=== PATIENT | female | born 1970 | race Two or more races ===

== ENCOUNTER → 2017-02-11 | Outpatient (CLI) | payer OTHER ==
[2016-01-23 21:05] VITALS: BP 107/69
--- NOTE | 2017-02-11 14:37 | RAD ---
DATE: 02/11/2017 EXAM: MAMMO HILDA SCREENING BILATERAL HISTORY: Routine screening. COMPARISON: 02/02/2016 and 01/25/2015. This study was interpreted with the benefit of Computerized Aided Detection (CAD). FINDINGS: The parenchymal pattern is stable. Right breast mass is stable. No new mass is identified. No malignant-appearing microcalcifications are seen. The axillae are unremarkable. Breast Density: HETERO The breast parenchyma is heterogeneously dense, which could reduce sensitivity of mammography. Breast parenchyma level C. IMPRESSION: No mammographic features suspicious for malignancy are identified. BI-RADS CATEGORY: 2 BENIGN FINDING(S) RECOMMENDED FOLLOW-UP: 12M 12 MONTH FOLLOW-UP PQRS compliance statement: Patient information was entered into a reminder system with a target due date 02/11/2018 for the next mammogram. Mammography is a sensitive method for finding small breast cancers, but it does not detect them all and is not a substitute for careful clinical examination. A negative mammogram does not negate a clinically suspicious finding and should not result in delay in biopsying a clinically suspicious abnormality. "Our facility is accredited by the [employer] Mammography [employer]."
== END | disposition home or self-care (01) ==
LOC: MAMMO 13:37
PROVIDERS: ATTEND Obstetrics & Gynecology
DX: Z12.31 Encounter for screening mammogram for malignant neoplasm of breast (principal)
CPT/HCPCS: 77063; G0202; 77067

== ENCOUNTER → 2018-02-13 | Outpatient (CLI) | payer OTHER ==
[2017-10-29 15:24] VITALS: BP 85/50
[~2018-02-13] MED LIST: RANI150T21 PO
--- NOTE | 2018-02-16 08:36 | RAD ---
DATE: 02/13/2018 10:00 AM EXAM: MAMMO HILDA SCREENING BILATERAL HISTORY: routine screening evaluation. COMPARISON: Prior mammographic imaging dating back to 01/29/2012 Bilateral CC and MLO views of the breasts were performed. Bilateral breast tomosynthesis was performed in CC and MLO projections. This study was interpreted with the benefit of Computerized Aided Detection (CAD ). Breast Density: The breast parenchyma is heterogeneously dense, which could reduce sensitivity of mammography. Breast parenchyma level C. FINDINGS: Benign calcifications are present. Nodular mass in the superior right breast is stable to at least 10/01/2013. No suspicious masses, microcalcifications or architectural distortion is present to suggest malignancy in either breast. The visualized axillae are unremarkable. IMPRESSION: No mammographic evidence of malignancy. BI-RADS CATEGORY: 2 BENIGN FINDING(S) RECOMMENDED FOLLOW-UP: 12M 12 MONTH FOLLOW-UP Annual screening mammography is recommended, unless clinically indicated sooner based on symptoms or change in physical exam. PQRS compliance statement: Patient information was entered into a reminder system with a target due date 02/13/2019 for the next mammogram. Mammography is a sensitive method for finding small breast cancers, but it does not detect them all and is not a substitute for careful clinical examination. A negative mammogram does not negate a clinically suspicious finding and should not result in delay in biopsying a clinically suspicious abnormality. "Our facility is accredited by the [employer] Mammography [employer]." MTDD
== END | disposition home or self-care (01) ==
LOC: MAMMO 07:53
PROVIDERS: ATTEND Family Medicine
DX: Z12.31 Encounter for screening mammogram for malignant neoplasm of breast (principal)
CPT/HCPCS: 77063; 77067

== ENCOUNTER 2018-11-18 18:02 | Emergency (ER) | payer OTHER ==
[~2018-11-18] VITALS: Ht 149.9 cm; Wt 54.4 kg
[~2018-11-18 18:02] MED LIST changes: +RANI-376 PO; -RANI150T21 PO
[2018-11-18] MEDS ORDERED: CYCL-331 PO (19:02)
--- NOTE | 2018-11-18 19:02 | PHYS DOC ---
Past History Past Medical History: No Pertinent History Past Surgical History: Other Additional Past Surgical Histo: D&C Smoking: Non-smoker Alcohol Use: None Drug Use: None Adult General Chief Complaint Chief Complaint: BACK PAIN OR INJURY HPI HPI Patient is a 48 year old female who presents with complaint of back pain. The patient states that she started having pain in her upper back earlier today while at work. 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 Notes that the pain worsens with movement along her right side and with movement of her right upper extremity. Notes that she also gets back spasms when she takes a deep breath. Denies any recent fall or trauma. D enies any unilateral weakness, difficulty with ambulation, or any loss of bowel or bladder control. Took naproxen at approximately 1230 with minimal relief in pain. Review of Systems Review of Systems Constitutional: Denies fever or chills [] Eyes: Denies change in visual acuity, redness, or eye pain [] HENT: Denies nasal congestion or sore throat [] Respiratory: Denies cough or shortness of breath [] Cardiovascular: Denies chest pain or edema [] GI: Denies abdominal pain, nausea, vomiting, bloody stools or diarrhea [] : Denies dysuria or hematuria [] Musculoskeletal: Back pain[] Integument: Denies rash or skin lesions [] Neurologic: Denies headache, focal weakness or sensory changes [] All other systems were reviewed and found to be within normal limits, except as documented in this note. Current Medications Current Medications Current Medications Medications (Trade) Dose Ordered Sig/[facility] Start Time Stop Time Status Last Admin Dose Admin Acetaminophen (Tylenol) 650 mg 1X ONCE 11/18/18 19:00 11/18/18 19:01 UNV Cyclobenzaprine HCl (Flexeril) 10 mg 1X ONCE 11/18/18 19:00 11/18/18 19:01 UNV Allergies Allergies Allergies Coded Allergies Type Severity Reaction Last Updated Verified No Known Drug Allergies 08/31/13 No Physical Exam Physical Exam Constitutional: Well developed, well nourished, no acute distress, non-toxic appearance. [] HENT: Normocephalic, atraumatic, bilateral external ears normal, oropharynx moist, no oral exudates, nose normal. [] Eyes: PERRLA, EOMI, conjunctiva normal, no discharge. [] Neck: Normal range of motion, no tenderness, supple, no stridor. [] Cardiovascular:Heart rate regular rhythm, no murmur [] Lungs & Thorax: Bilateral breath sounds clear to auscultation [] Abdomen: Bowel sounds normal, soft, no tenderness, no masses, no pulsatile masses. [] Skin: Warm, dry, no erythema, no rash. [] Back: Right-sided paraspinous muscle tenderness to palpation along mid thoracic spine, no midline tenderness, no flank ecchymosis, no CVA tenderness. [] Extremities: No tenderness, no cyanosis, no clubbing, ROM intact, no edema. [] Neurologic: Alert and oriented X 3, normal motor function, normal sensory function, no focal deficits noted. [] Current Patient Data Vital Signs Vital Signs Date Time Temp Pulse Resp B/P (MAP) Pulse Ox O2 Delivery O2 Flow Rate FiO2 11/18/18 18:05 98.4 84 20 100 Room Air Lab Results Not performed EKG EKG Not performed[] Radiology/Procedures Radiology/Procedures Not performed[] Course & Med Decision Making Course & Med Decision Making Pertinent Labs and Imaging studies reviewed. (See chart for details) Patient's symptoms appear consistent with thoracic back muscle strain. Given Tylenol and cyclobenzaprine in the emergency department. Advised continued use of Tylenol in addition to prescribed Flexeril given at today's visit. Recommended follow-up with primary doctor in 3-5 days for reevaluation and return to emergency department for any worsening symptoms per patient was understanding and in agreement with treatment plan.[] Dragon Disclaimer Dragon Disclaimer This electronic medical record was generated, in whole or in part, using a voice recognition dictation system. Departure Departure: Impression: Primary Impression: Strain of thoracic back region Disposition: HOME, SELF-CARE Condition: STABLE Referrals: CHILO MENDOZA MD (PCP) Patient Instructions: Back Pain, Adult Additional Instructions: Follow-up with your primary doctor in the next 3-5 days for reevaluation. Return to the emergency department for any worsening symptoms. Scripts Cyclobenzaprine Hcl (CYCLOBENZAPRINE HCL) 10 Mg Tablet 1 TAB PO TID PRN for MUSCLE SPASMS, #30 TAB Prov: RODRIGUE DA SILVA MD 11/18/18 RODRIGUE DA SILVA MD Nov 18, 2018 19:02
[2018-11-18] MEDS ORDERED: CYCLOBENZAPRINE 10 MG TABLET. PO ONE (19:15)
[2018-11-18] MEDS ORDERED: ACETAMINOPHEN 325 MG TABLET PO ONE (19:15)
[2018-11-18 19:20] VITALS: BP 116/74
== END 2018-11-18 19:24 | disposition home or self-care (01) ==
LOC: ER 18:02
DX: S29.012A Strain of muscle and tendon of back wall of thorax, initial encounter (principal); X50.9XXA Other and unspecified overexertion or strenuous movements or postures, initial encounter; Y93.89 Activity, other specified; Y92.89 Other specified places as the place of occurrence of the external cause; Y99.0 Civilian activity done for income or pay
CPT/HCPCS: 99283

== ENCOUNTER → 2019-02-23 | Outpatient (CLI) | payer OTHER ==
[~2019-02-23] MED LIST changes: +CYCL-331 PO
--- NOTE | 2019-02-23 16:55 | RAD ---
DATE: 02/23/2019 EXAM: MAMMO HILDA SCREENING BILATERAL HISTORY: Routine screening COMPARISON: 02/13/2018, 02/11/2017, 02/02/2016, 01/25/2015 mammographic exams This study was interpreted with the benefit of Computerized Aided Detection (CAD). Breast Density: HETERO The breast parenchyma is heterogenously dense, which could reduce sensitivity of mammography. Breast parenchyma level C. FINDINGS: No suspicious calcification, new mass, or distortion. Right upper breast mass has remained stable compared to multiple prior exams. IMPRESSION: Stable BI-RADS CATEGORY: 1 NEGATIVE RECOMMENDED FOLLOW-UP: 12M 12 MONTH FOLLOW-UP PQRS compliance statement: Patient information was entered into a reminder system with a target due date for the next mammogram. Mammography is a sensitive method for finding small breast cancers, but it does not detect them all and is not a substitute for careful clinical examination. A negative mammogram does not negate a clinically suspicious finding and should not result in delay in biopsying a clinically suspicious abnormality. "Our facility is accredited by the [employer] Mammography Program."
== END | disposition home or self-care (01) ==
LOC: MAMMO 09:41
PROVIDERS: ATTEND Obstetrics & Gynecology
DX: Z12.31 Encounter for screening mammogram for malignant neoplasm of breast (principal); N64.89 Other specified disorders of breast
CPT/HCPCS: 77063; 77067

== ENCOUNTER → 2019-04-28 | Outpatient (CLI) | payer OTHER ==
[2019-04-28 09:40] LABS: BASO % 0 % (0-3); EOS # 0.1 x10^3/uL (0.0-0.7); EOS % 1 % (0-3); HEMATOCRIT 41.8 % (36.0-47.0); HEMOGLOBIN 13.8 g/dL (12.0-15.5); LYMPH % 10 % (24-48); MEAN CORPUSCULAR HEMOGLOBIN 30 pg (25-35); MEAN CORPUSCULAR HGB CONC 33 g/dL (31-37); MEAN CORPUSCULAR VOLUME 90 fL (79-100); MONO % 9 % (0-9); NEUT # 8.2 x10^3uL (1.8-7.7); NEUT % 80 % (31-73); PLATELET COUNT 255 x10^3/uL (140-400); RED BLOOD COUNT 4.63 x10^6/uL (3.50-5.40); RED CELL DISTRIBUTION WIDTH 13.2 % (11.5-14.5); WHITE BLOOD COUNT 10.3 x10^3/uL (4.0-11.0)
[2019-04-28 09:46] LABS: CALCIUM 8.1 mg/dL (8.5-10.1); CREATININE 0.6 mg/dL (0.6-1.0); GFR 105.4; POTASSIUM 3.6 mmol/L (3.5-5.1)
[2019-04-28 09:52] LABS: ALBUMIN 3.3 g/dL (3.4-5.0); ALBUMIN/GLOBULIN RATIO 0.9 (1.0-1.7); TOTAL BILIRUBIN 0.1 mg/dL (0.2-1.0); TOTAL PROTEIN 6.9 g/dL (6.4-8.2)
--- NOTE | 2019-04-28 11:49 | RAD ---
AP and Lateral Views of the Chest 04/28/2019 12:00 AM Indication: Fever, cough Comparison: None Findings: There is no focal consolidation or infiltrate identified. The cardiomediastinal silhouette is within normal limits. There is no evidence of pneumothorax or pleural effusion. No acute osseous abnormalities are identified. Impression: No evidence of acute cardiopulmonary process. Electronically signed by: Beka Brewster MD (04/28/2019 11:46 AM) [id number]
== END | disposition home or self-care (01) ==
LOC: LAB 09:11
PROVIDERS: ATTEND Family Medicine
DX: J06.9 Acute upper respiratory infection, unspecified (principal); R50.81 Fever presenting with conditions classified elsewhere; J09.X9 Influenza due to identified novel influenza A virus with other manifestations
CPT/HCPCS: 36415; 71046; 80053; 85025

== ENCOUNTER → 2019-08-24 | Outpatient (CLI) | payer OTHER ==
--- NOTE | 2019-08-24 09:03 | RAD ---
Examination: SHOULDER 2+V LEFT History: Reason: LEFT SHOULDER PAIN / Spl. Instructions: / History: Comparison/Correlation: None Findings: Total of 5 images of the left shoulder were obtained. Acromioclavicular joint is unremarkable. Spurring involves the left humeral head inferiorly. No fracture or bone destruction. Glenohumeral joint is grossly unremarkable although not well profiled for purposes of this exam. Soft tissues are grossly unremarkable. Impression: Mild spurring of the left humeral head. Electronically signed by: Min Saha MD (08/24/2019 9:00 AM) [id number]
== END | disposition home or self-care (01) ==
LOC: RAD 08:39
PROVIDERS: ATTEND Physician Assistant
DX: M75.82 Other shoulder lesions, left shoulder (principal); M19.012 Primary osteoarthritis, left shoulder
CPT/HCPCS: 73030

== ENCOUNTER → 2019-09-09 | Outpatient (CLI) | payer OTHER | LOC: LAB 14:57 | PROVIDERS: ATTEND Internal Medicine Cardiovascular Disease | DX: Z20.828 Contact with and (suspected) exposure to other viral communicable diseases (principal) | CPT/HCPCS: 36415; U0003 ==

== ENCOUNTER → 2019-10-03 | Outpatient (CLI) | payer OTHER | END | disposition home or self-care (01) | LOC: LAB 14:16 | PROVIDERS: ATTEND Internal Medicine Cardiovascular Disease | DX: R51 Headache (principal); R19.7 Diarrhea, unspecified; R11.0 Nausea; Z20.828 Contact with and (suspected) exposure to other viral communicable diseases | CPT/HCPCS: U0003-CS ==

== ENCOUNTER → 2019-12-03 | Outpatient (CLI) | payer OTHER | LOC: LAB 13:46 | PROVIDERS: ATTEND Internal Medicine Cardiovascular Disease | DX: R68.83 Chills (without fever) (principal); R68.89 Other general symptoms and signs; R51.9 Headache, unspecified; M79.10 Myalgia, unspecified site; Z20.828 Contact with and (suspected) exposure to other viral communicable diseases | CPT/HCPCS: U0003-CS ==

== ENCOUNTER → 2020-01-06 | Outpatient (CLI) | payer OTHER | LOC: LAB 13:09 | PROVIDERS: ATTEND Internal Medicine Cardiovascular Disease | DX: U07.1 COVID-19 (principal) | CPT/HCPCS: U0003 ==

== ENCOUNTER 2020-01-13 12:31 | Emergency (ER) | payer OTHER ==
[~2020-01-13] VITALS: Ht 149.9 cm; Wt 61.0 kg
--- NOTE | 2020-01-13 12:39 | PHYS DOC ---
Past History Past Medical History: No Pertinent History Past Surgical History: Other Additional Past Surgical Histo: D&C Smoking: Non-smoker Alcohol Use: None Drug Use: None General Adult EDM: Chief Complaint: SHORTNESS OF BREATH HPI: HPI: 49 yo F with no signficant pmh, recently tested positive for covid ([facility]), presents to the ed with c/o shortness of breath, fever, body aches and headache. Was treated this past week with Tamiflu and azithromycin. Worst complaint is the fatigue and headache (gradual onset). No underlying lung disease. Review of Systems: Review of Systems: Constitutional: Denies diaphoresis Eyes: Denies change in visual acuity HENT: Denies nasal congestion or sore throat Respiratory: Denies cough or shortness of breath Cardiovascular: Denies chest pain or edema GI: Denies abdominal pain, nausea, vomiting, bloody stools or diarrhea : Denies dysuria Musculoskeletal: Denies back pain or joint pain Integument: Denies rash Neurologic: Denies neck stiffness, focal weakness or sensory changes Endocrine: Denies polyuria or polydipsia Lymphatic: Denies swollen glands Psychiatric: Denies depression or anxiety Allergies: Allergies: Allergies Coded Allergies Type Severity Reaction Last Updated Verified No Known Drug Allergies 08/31/13 No Physical Exam: PE: Constitutional: Well developed, weak/flu- appearing HENT: Normocephalic, atraumatic, Eyes: EOMI, conjunctiva normal, no discharge. Neck: Normal range of motion, supple, Cardiovascular: S1/2 present, regular rhythm Lungs & Thorax: Speaking in full sentences, bilateral equal chest rise, no tachypnea or increased work of breathing, 95-97% RA Abdomen: soft, no tenderness, Skin: Warm, dry, no erythema, no rash. [] Back: No tenderness, no CVA tenderness. [] Extremities: No tenderness, no cyanosis, no edema Neurologic: Alert and oriented X 3, normal motor function, normal sensory function, no focal deficits noted. [] Psychologic: Affect normal, judgement normal, mood normal. [] EKG: EKG: [] Radiology/Procedures: Radiology/Procedures: IMAGING REPORT Signed PATIENT: JANE LOPEZ SACCOUNT: [id number] : 1970 LOCATION: ER AGE: 49 SEX: F EXAM STATUS: REG ER ORD. PHYSICIAN: JEROD VENCES DO REASON: soa PROCEDURE: PORTABLE CHEST 1V Examination: PORTABLE CHEST 1V History: Reason: soa / Comparison/Correlation: 04/27/2021 the chest x-ray Findings: Frontal view the chest was obtained. Limited pulmonary inflation. Heart size and pulmonary vasculature are normal. No pneumothorax. Mild retrocardiac linear atelectasis is suggested. No definite consolidations. Bony structures are unremarkable. Impression: No suspicious process. Electronically signed by: Min Amaro MD (01/13/2020 1:31 PM) [facility] DICTATED AND SIGNED BY: MIN AMARO MD DATE: 01/13/201330 CC: VALERIA RODRIGUEZ MD; JEROD VENCES DO ~MTH0 0 Heart Score: Risk Factors: Risk Factors: DM, Current or recent (<one month) smoker, HTN, HLP, family history of CAD, obesity. Risk Scores: Score 0 - 3: 2.5% MACE over next 6 weeks - Discharge Home Score 4 - 6: 20.3% MACE over next 6 weeks - Admit for Clinical Observation Score 7 - 10: 72.7% MACE over next 6 weeks - Early Invasive Strategies Course & Med Decision Making: Course & Med Decision Making Pertinent Labs and Imaging studies reviewed. (See chart for details) COVID-19 CRITERIA: The patient was evaluated during the global COVID-19 pandemic, and that diagnosis was suspected/considered upon their initial presentation. Their evaluation, treatment and testing was consistent with c urrent guidelines for patients who present with complaints or symptoms that may be related to COVID-19. Concern for Covid complications, not requiring any supplemental oxygen. Chest x-ray with no pneumonia. Troponin and D-dimer within normal limits. Will DC home with conservative management. Strict ED return precautions were given for return to ED immediately if your oxygen level drops below 90% (purchase a pulse oximetry at a medical supply store), difficulties breathing with increased work of breathing, chest pain or stroke-like symptoms.. Encouraged urgent outpatient follow-up with PMD. Life-threatening processes were considered but are low suspicion at this time, given history and physical exam. Pt was educated on all prescription medications and adverse effects. All patient's questions were answered and pt was stable at time of discharge. Life/limb-threatening differential includes but is not limited to, ACS, dysrhythmia, pneumothorax or hemothorax, pulmonary embolus, pneumonia, bronchoconstriction, pulmonary edema, angioedema, epiglottitis, tracheitis, Akhil's angina, RPA/MANUFACTURING EXECUTIVE, anaphylaxis, angioedema, cardiac tamponade or murmurs, pericarditis, myocarditis, poisoning or toxicity, sepsis or autoimmune/neurologic disease, meningitis, encephalitis, intracranial hemorrhage, obstructive hydrocephaly, CVA, carbon oxide poisoning, cerebral or cavernous venous thrombosis, hypertensive emergency, preeclampsia, giant cell arteritis, glaucoma, carotid or vertebral artery dissection, superior vena cava syndrome, infection, space-occupying lesions I spoken with the patient and her caregivers. I explained the patient's condition, diagnoses and treatment plan based on the information available to me at this time. I have answered the patient and her caregiver's questions and addressed any concerns. The patient and her caregivers have a good understanding of patient's diagnosis, condition and treatment plan as can be expected at this point. Vital signs have been stable. Patient's condition is stable and appropriate for discharge from the emergency department. Patient will pursue further outpatient evaluation with primary care physician or other designated or consulting physician as outlined in the discharge instructions. The patient and/or caregivers are agreeable to this plan of care and follow-up instructions have been explained in detail. The patient and/or caregivers have received these instructions in written form and have expressed an understanding of the discharge instructions. The patient and/or caregivers are aware that any significant change of condition or worsening of symptoms should prompt immediate return to this or the closest emergency department or call to 911. Gurpreet Disclaimer: Gurpreet Disclaimer: This electronic medical record was generated, in whole or in part, using a voice recognition dictation system. Departure Departure: Impression: Primary Impression: COVID-19 Additional Impressions: Headache Myalgia Disposition: 01 DC HOME SELF CARE/HOMELESS Condition: STABLE Referrals: VALERIA RODRIGUEZ MD (PCP) in 1-2 weeks Patient Instructions: General Headache Without Cause Additional Instructions: You have been tested for or diagnosed with COVID-19. It is an infection caused by a new type of coronavirus. COVID-19 will cause cold-like or mild flu symptoms in most. It can cause more severe symptoms like problems breathing in some. There is no treatment for COVID-19. The body will clear the infection over time. Self-care will help to ease discomfort. Steps to Take: Self-Care Rest as needed. Healthy habits may help you feel better. Steps include: Choose healthy foods including fruits and vegetables. Drink water throughout the day. Get plenty of sleep each night. If you smoke, try to quit. It may ease breathing. Avoid alcohol. Keep Others Healthy The virus can spread to others. Droplets are released every time you sneeze or cough. The droplets can get into the mouth, nose, or eyes of people near you and lead to infection. To lower the chances of spreading COVID-19 to others: Stay at home until your doctor has said it is safe to leave. If you tested positive this will mean staying isolated until both of the following are true: At least 7 days have passed since the start of illness. You are free of fever for at least 72 hours without the use of medicine. During this time: - Avoid public areas, events, or transportation. Do not return to work or school until your doctor has said it is safe to do so. - Call ahead if you need to go to a medical center. Let them know you may have COVID-19. It will help them guide you where to go. They may also ask you to wear a facemask when you come to the office. - If you call for emergency medical services, let them know you may have COVID- 19. While at home: - Try to avoid close contact with others. Stay about 6 feet away. - If possible, spend most of your time in a separate room from others. - Use a face mask if you will be in close contact with others such as sharing a room or vehicle. - Have someone wipe down common surfaces in the home. Use household print production associate every day on areas like doorknobs, counters, or sinks. - Cough or sneeze into a tissue. Throw the tissue away right after use. If a tissue is not available, cough or sneeze into your elbow. - Wash your hands often. Wash them after sneezing or coughing. Use soap and water and wash for at least 20 seconds. Alcohol based hand commercial cleaner can be used if soap and water is not available. - Do not prepare food for others. Avoid sharing personal items like forks, spoons, or toothbrushes. - Avoid close contact with pets while you are sick. There is no evidence of the virus passing to pets. This is a safety step until more is known about this virus. Isolation can be frustrating. Social interaction can help. Keep in touch with friends and family through phone and tech options. You can still interact with others in your home, just keep a safe distance of about 6 feet. Follow-up: Your doctors office will check in with you to see if there are any changes in your health. You may be asked to keep track of symptoms to share with them. They will also let you know when you are clear to be in public again. Problems to Look Out For: Contact your doctor if your recovery is not going as you expect. Get emergency care if you have problems such as: - Trouble breathing - Nonstop chest pain or pressure - Changes in awareness, confusion, or problems waking - Lips or face have bluish color - Worsening of symptoms If you think you have an emergency, call for emergency medical services right away. As taken from [facility],JEROD Peck DO Jan 13, 2020 12:39
[2020-01-13] MEDS ORDERED: IV NORMAL SALINE 1,000ML 1,000 ML IV ONE ×3 (12:45→13:45)
[2020-01-13 12:50] VITALS: BP 105/68
--- NOTE | 2020-01-13 13:21 | EKG ---
[address] [address] Test Date: 2020-01-13 Test Time: 13:06:07 Pat Name: JANE LOPEZ Department: Room: Gender: F Singing Telegram Performer: SHANITA : 1970 Requested By: JEROD VENCES Order Number: [id number] Reading MD: Measurements Intervals [place] Rate: 94 P: 34 LA: 116 QRS: -5 QRSD: 78 T: 11 QT: 362 QTc: 458 Interpretive Statements SINUS RHYTHM LEFTWARD AXIS OTHERWISE NORMAL ECG RI6.02 No previous ECG available for comparison
--- NOTE | 2020-01-13 13:34 | RAD ---
Examination: PORTABLE CHEST 1V History: Reason: soa / Comparison/Correlation: 04/27/2021 the chest x-ray Findings: Frontal view the chest was obtained. Limited pulmonary inflation. Heart size and pulmonary vasculature are normal. No pneumothorax. Mild retrocardiac linear atelectasis is suggested. No definite consolidations. Bony structures are unremarkable. Impression: No suspicious process. Electronically signed by: Min Saha MD (01/13/2020 1:31 PM) [facility]
[2020-01-13 13:43] LABS: BASO % 0 % (0-3); EOS % 0 % (0-3); HEMATOCRIT 44.4 % (36.0-47.0); HEMOGLOBIN 14.6 g/dL (12.0-15.5); LYMPH # 0.6 x10^3/uL (1.0-4.8); LYMPH % 13 % (24-48); MEAN CORPUSCULAR HEMOGLOBIN 30 pg (25-35); MEAN CORPUSCULAR HGB CONC 33 g/dL (31-37); MEAN CORPUSCULAR VOLUME 91 fL (79-100); MONO # 0.4 x10^3/uL (0.0-1.1); MONO % 9 % (0-9); NEUT # 3.3 x10^3uL (1.8-7.7); NEUT % 78 % (31-73); PLATELET COUNT 217 x10^3/uL (140-400); RED BLOOD COUNT 4.88 x10^6/uL (3.50-5.40); RED CELL DISTRIBUTION WIDTH 12.7 % (11.5-14.5); WHITE BLOOD COUNT 4.3 x10^3/uL (4.0-11.0)
[2020-01-13] MEDS ORDERED: diphenhydrAMINE 50 MG/ML VIAL IVP ONE (13:45)
[2020-01-13] MEDS ORDERED: PROCHLORPERAZINE 10 MG/2 ML VIAL. IV ONE (13:45)
[2020-01-13] MEDS ORDERED: DEXAMETHASONE SOD PHOS 10 MG/ML VIAL. IV ONE (13:45)
[2020-01-13] MEDS ORDERED: KETOROLAC 15 MG/ML VIAL. IVP ONE (13:45)
[2020-01-13] MEDS ORDERED: IPRATRPIUM/ALBUTEROL 0.5/2.5MG 3 ML NEBU. NEB ONE (13:45)
[2020-01-13 14:08] LABS: CREATININE 0.8 mg/dL (0.6-1.0); GFR 75.6; POTASSIUM 3.9 mmol/L (3.5-5.1)
[2020-01-13 14:18] LABS: INFLUENZA A PATIENT NEGATIVE (NEGATIVE); INFLUENZA B PATIENT NEGATIVE (NEGATIVE)
[2020-01-13 14:21] LABS: ALBUMIN 3.5 g/dL (3.4-5.0); ALBUMIN/GLOBULIN RATIO 0.9 (1.0-1.7); TOTAL BILIRUBIN 0.1 mg/dL (0.2-1.0); TOTAL PROTEIN 7.2 g/dL (6.4-8.2)
== END 2020-01-13 14:57 | disposition home or self-care (01) ==
LOC: ER 12:31
DX: U07.1 COVID-19 (principal); R51.9 Headache, unspecified; M79.10 Myalgia, unspecified site
CPT/HCPCS: 36415; 71045; 80053; 83605; 83880; 84484; 85025; 85379; 87040; 87804; 93005; 96365; 99285; J1956; J7030

== ENCOUNTER 2020-01-15 06:58 | Emergency (ER) | payer OTHER ==
[~2020-01-15] VITALS: Ht 149.9 cm; Wt 61.0 kg
[2020-01-15] MEDS ORDERED: 0.9 % SODIUM CHLORIDE 10 ML DISP.SYRIN. IV PRN (07:15)
[2020-01-15] MEDS ORDERED: ACETAMINOPHEN 500 MG TABLET PO ONE (07:15)
[2020-01-15] MEDS ORDERED: IV NORMAL SALINE 1,000ML 1,000 ML IV ONE (07:15)
--- NOTE | 2020-01-15 07:34 | PHYS DOC ---
Past History Past Medical History: No Pertinent History Past Surgical History: No Surgical History Additional Past Surgical Histo: D&C Smoking: Non-smoker Alcohol Use: None Drug Use: None General Adult EDM: Chief Complaint: COUGH HPI: HPI: Patient is a 49-year-old female who presented to ER today for evaluation of trouble breathing cough, fever and chills, weakness. Patient was tested positive for COVID-19 on January 06. Patient has been on Z-Jeramie and Tamiflu. She had not get any better. She complained of trouble breathing when she wa lked. She has chest pain when she cough. She constantly have fever but not improved with medication. Review of Systems: Review of Systems: Constitutional: Positive for fever and chill Eyes: Denies change in visual acuity HENT: Denies nasal congestion or sore throat Respiratory: Positive for cough and trouble breathing Cardiovascular: Positive for chest pain, no edema GI: Denies abdominal pain, nausea, vomiting, bloody stools or diarrhea : Denies dysuria Musculoskeletal: Denies back pain or joint pain Integument: Denies rash Neurologic: Denies headache, focal weakness or sensory changes Endocrine: Denies polyuria or polydipsia Lymphatic: Denies swollen glands Psychiatric: Denies depression or anxiety Current Medications: Current Meds: Current Medications Medications (Trade) Dose Ordered Sig/Mariangel Start Time Stop Time Status Last Admin Dose Admin Acetaminophen (Tylenol) 1,000 mg 1X ONCE 01/15/20 07:15 01/15/20 07:16 DC 01/15/20 07:28 1,000 MG Sodium Chloride 1,000 ml @ 1,000 mls/hr 1X ONCE 01/15/20 07:15 01/15/20 08:14 01/15/20 07:29 1,000 MLS/HR Sodium Chloride (Normal Saline Flush) 10 ml QSHIFT PRN 01/15/20 07:15 Allergies: Allergies: Allergies Coded Allergies Type Severity Reaction Last Updated Verified No Known Drug Allergies 08/31/13 No Physical Exam: PE: Constitutional: Well developed, well nourished, mild acute distress, non-toxic appearance. [] HENT: Normocephalic, atraumatic, bilateral external ears normal, oropharynx moist, no oral exudates, nose normal. [] Eyes: PERRLA, EOMI, conjunctiva normal, no discharge. [] Neck: Normal range of motion, no tenderness, supple, no stridor. [] Cardiovascular: Sinus tachycardia, regular rhythm, no murmur [] Lungs & Thorax: Bilateral breath sounds with diffuse crackles,to auscultation, tachypnic, shallow breathing. Abdomen: Bowel sounds normal, soft, no tenderness, no masses, no pulsatile masses. [] Skin: Warm, dry, no erythema, no rash. [] Back: No tenderness, no CVA tenderness. [] Extremities: No tenderness, no cyanosis, no clubbing, ROM intact, no edema. [] Neurologic: Alert and oriented X 3, normal motor function, normal sensory function, no focal deficits noted. [] Psychologic: Affect normal, judgement normal, mood normal. [] Current Patient Data: Vital Signs: Laboratory Tests Test 01/15/20 07:30 White Blood Count 5.8 x10^3/uL Red Blood Count 4.46 x10^6/uL Hemoglobin 13.3 g/dL Hematocrit 40.3 % Mean Corpuscular Volume 90 fL Mean Corpuscular Hemoglobin 30 pg Mean Corpuscular Hemoglobin Concent 33 g/dL Red Cell Distribution Width 12.6 % Platelet Count 211 x10^3/uL Neutrophils (%) (Auto) 87 % Lymphocytes (%) (Auto) 7 % Monocytes (%) (Auto) 6 % Eosinophils (%) (Auto) 0 % Basophils (%) (Auto) 0 % Neutrophils # (Auto) 5.1 x10^3uL Lymphocytes # (Auto) 0.4 x10^3/uL Monocytes # (Auto) 0.3 x10^3/uL Eosinophils # (Auto) 0.0 x10^3/uL Basophils # (Auto) 0.0 x10^3/uL Platelet Estimate Pending Sodium Level 135 mmol/L Potassium Level 3.6 mmol/L Chloride Level 102 mmol/L Carbon Dioxide Level 25 mmol/L Anion Gap 8 Blood Urea Nitrogen 9 mg/dL Creatinine 0.7 mg/dL Estimated GFR (Cockcroft-Gault) 88.2 BUN/Creatinine Ratio 13 Glucose Level 91 mg/dL Lactic Acid Level 1.1 mmol/L Calcium Level 7.7 mg/dL Total Bilirubin 0.2 mg/dL Aspartate Amino Transf (AST/SGOT) 22 U/L Alanine Aminotransferase (ALT/SGPT) 18 U/L Alkaline Phosphatase 47 U/L Troponin I Quantitative < 0.017 ng/mL Total Protein 6.9 g/dL Albumin 3.0 g/dL Albumin/Globulin Ratio 0.8 Current Medications Medications (Trade) Dose Ordered Sig/Mariangel Route PRN Reason Start Time Stop Time Status Last Admin Dose Admin Sodium Chloride (Normal Saline Flush) 10 ml QSHIFT PRN IV AFTER MEDS AND BLOOD DRAWS 01/15/20 07:15 Sodium Chloride 1,000 ml @ 1,000 mls/hr 1X ONCE IV 01/15/20 07:15 01/15/20 08:14 DC 01/15/20 07:29 Acetaminophen (Tylenol) 1,000 mg 1X ONCE PO 01/15/20 07:15 01/15/20 07:16 DC 01/15/20 07:28 Dexamethasone Sodium Phosphate (Decadron) 10 mg 1X ONCE IV 01/15/20 08:30 01/15/20 08:31 UNV Calcium Gluconate (Calcium Gluconate) 1,000 mg 1X ONCE IV 01/15/20 08:30 01/15/20 08:31 UNV EKG: EKG: EKG was done at 720, heart rate of 110 beats per minute, sinus tachycardia. No ST segment elevation Radiology/Procedures: Radiology/Procedures: [][place] [address] IMAGING REPORT Signed PATIENT: JANE LOPEZ SACCOUNT: [id number] : 1970 LOCATION: ER AGE: 49 SEX: F EXAM STATUS: REG ER ORD. PHYSICIAN: CHILO MORALES DO REASON: soa, COVID19 INFECTION PROCEDURE: CHEST AP ONLY CHEST AP ONLY INDICATION: Reason: soa, COVID19 INFECTION / Spl. Instructions: / History: . COMPARISON STUDY: 01/13/2020. FINDINGS: Lungs: Normal lung volume. Patchy basilar predominant opacities. Pleura: No pleural effusion or pneumothorax. Heart and Mediastinum: The cardiomediastinal silhouette is normal. The great vessels of the thorax are normal. Bones and Soft Tissues: The bones and soft tissues are within normal limits. IMPRESSION: Patchy basilar predominant opacities, consistent with patient's history of infection. Electronically signed by: Rowena De La Paz MD (01/15/2020 8:04 AM) [id number] DICTATED AND SIGNED BY: ROWENA DE LA PAZ MD DATE: 01/15/20 0804 CC: VALERIA RODRIGUEZ MD; CHILO MORALES DO ~MTH0 0 Heart Score: Risk Factors: Risk Factors: DM, Current or recent (<one month) smoker, HTN, HLP, family history of CAD, obesity. Risk Scores: Score 0 - 3: 2.5% MACE over next 6 weeks - Discharge Home Score 4 - 6: 20.3% MACE over next 6 weeks - Admit for Clinical Observation Score 7 - 10: 72.7% MACE over next 6 weeks - Early Invasive Strategies Course & Med Decision Making: Course & Med Decision Making Pertinent Labs and Imaging studies reviewed. (See chart for details) Patient is a 49-year-old female who has COVID 19 pneumonia since January 06. She is hypoxic, tachypneic, requiring 4 L oxygen. Discussed with Dr. Bowers, hospitalist on-call, who recommended to transfer patient to [facility] for pulmonolgy and infection disease evaluation. Patient will need to be treated with convalescent plasma . The services are not available at this hospital. he accepted patient for transfer there. Critical care time was [45] minutes exclusive of procedures. Dragon Disclaimer: Gurpreet Disclaimer: This electronic medical record was generated, in whole or in part, using a voice recognition dictation system. Departure Departure: Impression: Primary Impression: Pneumonia due to COVID-19 virus Additional Impressions: Respiratory failure with hypoxia Hypocalcemia Disposition: 02 DC/TRF OTHER SHORT TERM HOS (Transferred to [facility], accepted by Dr. Bowers) Condition: STABLE Referrals: VALERIA RODRIGUEZ MD (PCP) CHILO MORALES DO Jan 15, 2020 07:34
[2020-01-15 08:00] LABS: BASO % 0 % (0-3); EOS % 0 % (0-3); HEMATOCRIT 40.3 % (36.0-47.0); HEMOGLOBIN 13.3 g/dL (12.0-15.5); LYMPH # 0.4 x10^3/uL (1.0-4.8); LYMPH % 7 % (24-48); MEAN CORPUSCULAR HEMOGLOBIN 30 pg (25-35); MEAN CORPUSCULAR HGB CONC 33 g/dL (31-37); MEAN CORPUSCULAR VOLUME 90 fL (79-100); MONO # 0.3 x10^3/uL (0.0-1.1); MONO % 6 % (0-9); NEUT # 5.1 x10^3uL (1.8-7.7); NEUT % 87 % (31-73); PLATELET COUNT 211 x10^3/uL (140-400); RED BLOOD COUNT 4.46 x10^6/uL (3.50-5.40); RED CELL DISTRIBUTION WIDTH 12.6 % (11.5-14.5); WHITE BLOOD COUNT 5.8 x10^3/uL (4.0-11.0)
[2020-01-15 08:03] LABS: CALCIUM 7.7 mg/dL (8.5-10.1); CREATININE 0.7 mg/dL (0.6-1.0); GFR 88.2; POTASSIUM 3.6 mmol/L (3.5-5.1)
--- NOTE | 2020-01-15 08:07 | RAD ---
CHEST AP ONLY INDICATION: Reason: soa, COVID19 INFECTION / Spl. Instructions: / History: . COMPARISON STUDY: 01/13/2020. FINDINGS: Lungs: Normal lung volume. Patchy basilar predominant opacities. Pleura: No pleural effusion or pneumothorax. Heart and Mediastinum: The cardiomediastinal silhouette is normal. The great vessels of the thorax are normal. Bones and Soft Tissues: The bones and soft tissues are within normal limits. IMPRESSION: Patchy basilar predominant opacities, consistent with patient's history of infection. Electronically signed by: Claudio De La Paz MD (01/15/2020 8:04 AM) [id number]
[2020-01-15 08:09] LABS: ALBUMIN/GLOBULIN RATIO 0.8 (1.0-1.7); TOTAL BILIRUBIN 0.2 mg/dL (0.2-1.0); TOTAL PROTEIN 6.9 g/dL (6.4-8.2)
[2020-01-15] MEDS ORDERED: DEXAMETHASONE SOD PHOS 10 MG/ML VIAL. IV ONE (08:30)
[2020-01-15] MEDS ORDERED: CALCIUM GLUCONATE 1,000 MG/10 ML VIAL IV ONE (08:30)
[2020-01-15 09:10] VITALS: BP 94/62
[2020-01-15 10:08] LABS: % BANDS 1 % (0-9); % LYMPHS 10 % (24-48); % MONOS 4 % (0-10); % SEGS 85 % (35-66)
[2020-01-15 10:09] LABS: PLT ESTIMATE ADEQUATE (ADEQUATE)
== END 2020-01-15 11:31 | disposition short-term general hospital (02) ==
LOC: ER 06:58
DX: U07.1 COVID-19 (principal); J96.91 Respiratory failure, unspecified with hypoxia; J12.89 Other viral pneumonia; E83.51 Hypocalcemia; R50.9 Fever, unspecified; Z98.890 Other specified postprocedural states
CPT/HCPCS: 36415; 71045; 80053; 83605; 84484; 85007; 85025; 87040; 93005; 96361; 96374; 96375; 99291; J0610; J0696; J1100; J7030; 99285

== ENCOUNTER → 2020-04-03 | Outpatient (CLI) | payer OTHER ==
--- NOTE | 2020-04-03 10:41 | RAD ---
DATE: 04/03/2020 8:44 AM EXAM: MAMMO HILDA SCREENING BILATERAL HISTORY: Screening COMPARISON: Bilateral mammogram of 02/11/2017, 02/13/2018 and 02/23/2019. Limited right breast ultrasound of 02/14/2015. Bilateral CC and MLO views of the breasts were performed. Bilateral breast tomosynthesis was performed in CC and MLO projections. This study was interpreted with the benefit of Computerized Aided Detection (CAD). FINDINGS: Breast Density: HETERO The breast parenchyma Is heterogeneously dense, which could reduce sensitivity of mammography. Breast parenchyma level C Similar appearance to the oval, circumscribed isodense mass at the right 12:00 position, previously evaluated on ultrasound as probably benign fibroadenoma. On mammography, this measures approximately 1.7 cm. There is a nodular pattern to the breast parenchyma bilaterally, compatible with benign cystic or fibroadenomatoid change. IMPRESSION: Benign nodularity to both breasts, compatible with fibroadenomatoid or cystic change. No evidence of malignancy. BI-RADS CATEGORY: 2 BENIGN FINDING(S) RECOMMENDED FOLLOW-UP: 12M 12 MONTH FOLLOW-UP Annual screening mammography is recommended, unless clinically indicated sooner based on symptoms or change in physical exam. PQRS compliance statement: Patient information was entered into a reminder system with a target due date for the next mammogram. Mammography is a sensitive method for finding small breast cancers, but it does not detect them all and is not a substitute for careful clinical examination. A negative mammogram does not negate a clinically suspicious finding and should not result in delay in biopsying a clinically suspicious abnormality. "Our facility is accredited by the [employer] Mammography [employer]."
== END ==
LOC: MAMMO 08:26
PROVIDERS: ATTEND Obstetrics & Gynecology
DX: Z12.31 Encounter for screening mammogram for malignant neoplasm of breast (principal); N64.89 Other specified disorders of breast
CPT/HCPCS: 77063; 77067

== ENCOUNTER → 2020-08-07 | Outpatient (CLI) | payer OTHER ==
--- NOTE | 2020-08-07 17:10 | RAD ---
INDICATION: Shoulder pain and arthroplasty COMPARISON: December 2019 and June 2020 chest x-ray IMPRESSION: Left shoulder: 2 views obtained. Status post arthroplasty without periprosthetic fracture or dislocat ion. Haziness at the left lung. This haziness could be from atelectasis from crowding of the pulmonar y markings with edema or interstitial infiltrate also in differential. Electronically signed by: Lucio Hernández MD (08/07/2020 5:07 PM) [id number]
== END ==
LOC: RAD 14:11
PROVIDERS: ATTEND Physician Assistant
DX: M25.512 Pain in left shoulder (principal); Z98.890 Other specified postprocedural states
CPT/HCPCS: 73030

== ENCOUNTER → 2020-11-10 | Outpatient (CLI) | payer OTHER ==
--- NOTE | 2020-11-10 15:23 | RAD ---
EXAM: Right foot, 3 views. HISTORY: Pain. COMPARISON: None. FINDINGS: 3 views of the right foot are obtained. There is no fracture, dislocation or subluxation. T here is a tiny plantar spur. There is minimal enthesopathy at the Achilles tendon insertion. IMPRESSION: No acute osseous finding. Electronically signed by: Xiomara Rodriguez MD (11/10/2020 3:21 PM) [id number]
== END ==
LOC: RAD 13:10
PROVIDERS: ATTEND Podiatrist
DX: M79.671 Pain in right foot (principal)
CPT/HCPCS: 73630

== ENCOUNTER → 2021-04-13 | Outpatient (CLI) | payer OTHER ==
[~2021-04-13] MED LIST changes: -CYCL-331 PO; +CYCL10TA19 PO
--- NOTE | 2021-04-13 09:54 | RAD ---
EXAM: Right shoulder, 4 views. HISTORY: Pain. COMPARISON: None. FINDINGS: 4 views of the right shoulder obtained. There is no fracture, dislocation or subluxation. IMPRESSION: No acute osseous finding. Electronically signed by: Xiomara Rodriguez MD (04/13/2021 9:52 AM) [id number]
== END ==
LOC: RAD 09:13
PROVIDERS: ATTEND Physician Assistant
DX: M25.511 Pain in right shoulder (principal)
CPT/HCPCS: 73030

== ENCOUNTER → 2021-04-17 | Outpatient (CLI) | payer OTHER ==
--- NOTE | 2021-04-17 13:32 | RAD ---
EXAMINATION: MG BILAT SCREEN+HILDA CLINICAL HISTORY: Screening mammogram TECHNIQUE: Digital craniocaudal and mediolateral oblique views of the bilateral breasts obtained with 3-D tomosynthesis. COMPARISON: 04/03/2020, 02/23/2019, 02/13/2018, 02/11/2017, 02/02/2016 BREAST COMPOSITION: The breasts are heterogeneously dense, which may obscure small masses. FINDINGS: No evidence of suspicious mass, calcifications, or areas of architectural distortion. Essentially unc hanged mass 12:00 position right breast. IMPRESSION: No mammographic evidence of malignancy. BI-RADS ASSESSMENT: Category 2: Benign RECOMMENDATION: Return for routine bilateral screening mammogram in one year. PQRS compliance statement - Patient information was entered into a reminder system with a target due date for the next mammogram. "Our facility is accredited by the [employer] Mammography [employer]." Electronically signed by: Jaret Smith DO (04/17/2021 1:30 PM) [id number]
== END ==
LOC: MAMMO 07:46
PROVIDERS: ATTEND Family Medicine
DX: Z12.31 Encounter for screening mammogram for malignant neoplasm of breast (principal)
CPT/HCPCS: 77063; 77067